=== PATIENT | female | born 1965 | race Caucasian/White ===

== ENCOUNTER 2017-06-19 17:13 | Emergency (ER) | payer OTHER ==
[2017-06-19] MEDS: KETOROLAC 30 MG INJ IM (20:52)
== END 2017-06-19 21:48 | disposition home or self-care (01) ==
LOC: FTE 17:13
DX: M54.5 Low back pain (principal)
CPT/HCPCS: 72100; 96372; 99284-25

== ENCOUNTER 2018-03-30 10:19 | Emergency (ER) | payer OTHER ==
[2018-03-30] MEDS: ALBUTEROL 0.083% (NEB) 2.5 MG/3 ML AMP NEB (11:14)
[2018-03-30] MEDS: IPRATROPIUM (NEB) 0.5 MG/2.5 ML AMP NEB (11:14)
[2018-03-30] MEDS: CEPASTAT LOZENGE MT (12:53)
== END 2018-03-30 12:54 | disposition home or self-care (01) ==
LOC: FTE 10:19
DX: J40 Bronchitis, not specified as acute or chronic (principal); E11.9 Type 2 diabetes mellitus without complications; I10 Essential (primary) hypertension
CPT/HCPCS: 71045; 94664; 99283-25

== ENCOUNTER 2018-10-26 09:05 | Emergency (ER) | payer OTHER ==
[2018-10-26] MEDS: FAMOTIDINE 20 MG TAB PO (09:44)
[2018-10-26 09:45] LABS: ADD MAN DIFF? NO
[2018-10-26] MEDS: LIDOCAINE/MYLANTA 40 ML BTL PO (09:45)
[2018-10-26] MEDS: BELLADONNA/PHENOBARBITAL TAB PO (09:45)
[2018-10-26 09:47] LABS: BASOPHILS % 0.3 % (0.0-2.0); EOSINOPHILS % 0.2 % (0.0-7.0); HEMATOCRIT 38.7 % (37.0-47.0); HEMOGLOBIN 12.4 g/dl (12.0-16.0); LYMPHOCYTES # 1.1 10^3/ul (0.8-2.9); LYMPHOCYTES % 11.4 % (15.0-51.0); MEAN CORPUSCULAR HEMOGLOBIN 27.1 pg (29.0-33.0); MEAN CORPUSCULAR VOLUME 84.5 fl (82.0-101.0); MEAN PLATELET VOLUME 11.1 fl (7.4-10.4); MONOCYTE # 0.3 10^3/ul (0.3-0.9); MONOCYTES % 2.7 % (0.0-11.0); NEUTROPHIL # 8.5 10^3/ul (1.6-7.5); NEUTROPHILS % 84.9 % (39.0-77.0); PLATELET COUNT 227 10^3/UL (140-415); RED BLOOD COUNT 4.58 10^6/ul (4.20-5.40); RED CELL DISTRIBUTION WIDTH 14.4 % (11.5-14.5)
[2018-10-26 10:07] LABS: ALANINE AMINOTRANSFERASE 30 IU/L (13-69); ALBUMIN 4.6 g/dl (3.3-4.9); ALBUMIN/GLOBULIN RATIO 1.48; ALKALINE PHOSPHATASE 109 IU/L (42-121); ANION GAP 11 (5-13); ASPARTATE AMINO TRANSFERASE 24 IU/L (15-46); BILIRUBIN,INDIRECT 0.3 mg/dl (0-1.1); BILIRUBIN,TOTAL 0.3 mg/dl (0.2-1.3); BLOOD UREA NITROGEN 21 mg/dl (7-20); CALCIUM 10.1 mg/dl (8.4-10.2); CARBON DIOXIDE 28 mmol/L (21-31); CHLORIDE 102 mmol/L (97-110); CREATININE 0.76 mg/dl (0.44-1.00); Estimated GFR > 60 mL/min (>60); GLUCOSE 208 mg/dl (70-220); LIPASE 63 U/L (23-300); SODIUM 141 mmol/L (135-144); TOTAL PROTEIN 7.7 g/dl (6.1-8.1)
[2018-10-26 10:18] LABS: TROPONIN-I < 0.012 ng/ml (0.000-0.120)
== END 2018-10-26 10:45 | disposition home or self-care (01) ==
LOC: E/R 09:05
DX: K80.50 Calculus of bile duct without cholangitis or cholecystitis without obstruction (principal); E66.01 Morbid (severe) obesity due to excess calories; I10 Essential (primary) hypertension; E11.9 Type 2 diabetes mellitus without complications; Z68.39 Body mass index [BMI] 39.0-39.9, adult
CPT/HCPCS: 36415; 76705; 80053; 83690; 84484; 85025; 93005; 99285-25